=== PATIENT | male | born 1970 | race Caucasian/White ===

== ENCOUNTER 2025-03-05 04:23 | Emergency (ER) | payer OTHER, SELFPAY ==
[2025-03-05 04:25] VITALS: BP 156/94
[2025-03-05 04:33] VITALS: BMI 17.7
--- NOTE | 2025-03-05 05:30 | ED.GENMED ---
History of Present Illness
General
Chief Complaint: Eye Problems
Source: patient
Exam Limitations: none
Time Seen by Provider: 03/05/25 04:51
Nursing documentation reviewed up to this point in time: agreed with
History of Present Illness
History of Present Illness:
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
blood thinners no double vision
Past History
Past History
ED Past Medical History: None
ED Past Surgical History: None
Social History
Tobacco: Non-smoker
Alcohol: None
Drug: None
Personal:
Living: with family
Employment: Employed
Review of Systems
Review of Systems
All Other Systems: Not applicable
EENT: Reports other (Redness around the right eye)
Skin: Denies itching
Neurological: Denies headache or weakness
Phy Exam
Physical Exam
Physical Exam:
Physical Exam
General: no apparent distress, not acutely ill
Neck: No proptosis, no photophobia conjunctiva on the right eye from 2 to 7 PM swollen red pupil round reactive OU
Heart: s1/s2 regular rate and rhythm, no murmur. equal radial pulses.
Lungs: no acute respiratory distress.
Neuro: alert and oriented. no focal neurological deficits
Skin: no rash
Psychiatric: well kept. interactive and cooperative
Extremities: no edema.
Course
Vital Signs
Initial and Last Documented VS:
Initial Vital Signs
Temp Pulse Resp BP Pulse Ox
98.2 F 56 20 156/94 100
03/05/25 04:25 03/05/25 04:25 03/05/25 04:25 03/05/25 04:25 03/05/25 04:25
Last Documented Vital Signs
Temp Pulse Resp BP Pulse Ox
98.2 F 56 20 156/94 100
03/05/25 04:25 03/05/25 04:25 03/05/25 04:25 03/05/25 04:25 03/05/25 04:25
Procedures
Eye Procedures
Anesthesia: other (Tetracaine)
After removal was there a corneal abrasion?: no corneal damage noted (No fluorescein uptake)
MDM/Problems Addressed
Differential Diagnosis Includes:
Conjunctival hemorrhage, allergic, trauma corneal abrasion
MDM/Problems Addressed:
Red swollen sclera conjunctive
*Pulse Oximetry
SaO2: 100
Patient hypoxic: no
*Critical Care Note
Total Time (30-74mins, 75-104mins- exclusive of procedures): Not Applicable
Update Note
Update Note:
Update looks like a subconjunctival hemorrhage, versus noticed some allergic component,
I checked his visual acuities are grossly intact, he has no fluorescein uptake
Will recommend saline drops as needed
ED Attending Note
-
Portions of this chart may have been created with voice recognition software.� Occasional wrong word or��sound alike� substitutions may have occurred due to the inherent limitations of voice recognition software.
Discharge Plan
Departure
Patient Disposition: Home (Routine Discharge)
Date of Disposition: 03/05/25
Time of Disposition: 05:22
Patient with high blood pressure during this ER visit?: No
Condition: Good
Discharge Problem:
Subconjunctival hemorrhage
Instructions: How to Use Eye Drops, Subconjunctival Hemorrhage
Activity Restrictions/Additional Instructions:
Go to the drugstore today and buy some saline eyedrops
Place them in the refrigerator, then use them 3-4 times a day as needed to keep your eye moist
Follow-up with your financial services professional
Try not to rub your eye
Interventions
Interventions:
*Risk Screen - Suicide Last Done: 03/05/25 04:25
*General Assessment Last Done: 03/05/25 04:33
*Neglect/Abuse Screening Last Done: 03/05/25 04:25
*ED- Fall Risk Assessment Last Done: 03/05/25 04:33
*ED COVID-19 Vaccine History Last Done: 03/05/25 04:33
Discharge Date and Time
Print Language: IRISH
== END 2025-03-05 06:25 | disposition home or self-care (01) ==
LOC: EMR 04:23
PROVIDERS: EMERGENCY PHYSICIAN Emergency Medicine
DX: H11.31 Conjunctival hemorrhage, right eye (principal)
CPT/HCPCS: 99283